=== PATIENT | female | born 1965 | race Native Hawaiian/Other Pacific Islander ===

== ENCOUNTER 2018-11-02 10:05 | Outpatient (CLI) | payer OTHER | END 2018-11-02 23:44 | disposition home or self-care (01) | LOC: US 10:05 | DX: R79.89 Other specified abnormal findings of blood chemistry (principal); E04.8 Other specified nontoxic goiter; R22.1 Localized swelling, mass and lump, neck; R53.83 Other fatigue; R63.5 Abnormal weight gain ==

== ENCOUNTER 2019-06-18 11:56 | Outpatient (CLI) | payer OTHER | END 2019-06-18 20:38 | disposition home or self-care (01) | LOC: RAD 11:56 | DX: J20.9 Acute bronchitis, unspecified (principal); R05 Cough ==